=== PATIENT | female | born 1950 | race Caucasian/White ===

== ENCOUNTER 2018-06-29 13:14 | Inpatient (IN) | payer OTHER ==
[~2018-06-29] VITALS: Ht 157.5 cm; Wt 117.2 kg
[~2018-06-29 13:14] MED LIST: AMB5 PO; AMBIEN10 MG PO; COL100UDC PO; COLACE100 MG PO; COZAAR100 MG PO; DICLOFENAC SOD100 M2 PO; LORAZEPAM PO; LORAZEPAM2 MG PO; LOSARTAN POTAS100 M1 PO; METFORMIN ER500 M1 PO; METFORMIN HCL850 MG PO; NORCO1 TA2 PO; OMEPRAZOLE20 M2 PO; PRI20 PO; PRILOSEC20 MG PO; TOR10 PO; TORADOL10 MG PO; ZOLPIDEM TARTRA10 MG PO
--- NOTE | 2018-06-29 13:37 | NUR ---
PT PRESENTS TO THE ED TODAY WITH C/C OF CELLULITIS. PT REPORTS THAT HER BUTTOCK WOUND STARTED OUT A "PIMPLE" AND HAS BEEN GROWING X10 DAYS. PT IS WEARING A DIAPER, ONLY TO CATCH DRAINAGE FROM WOUND. LARGE ERYTHEMATOUS AREA NOTED TO RIGHT BUTTOCK, PURULENT DRAINAGE NOTED, AREA IS BLANCHABLE AND SWOLLEN. ERYTHEMA EXTENDS OVER ENTIRE RIGHT BUTTOCK. PT IS AWAKE AND ALERT, RESP E/U, NAD NOTED. MSE COMPLETED BY DR GRIER.
--- NOTE | 2018-06-29 13:55 | NUR ---
CONTACT # FOR PIA Solomon [phone].
--- NOTE | 2018-06-29 14:22 | NUR ---
PT AMBULATORY WITH STEADY GAIT TO ED RESTROOM, NAD NOTED.
[2018-06-29 14:30] LABS: BASOPHIL % 0.4 % (0-2); PLATELET COUNT 276 x10^3mcL (130-400)
[2018-06-29 14:36] LABS: CALCIUM 8.9 mg/dL (8.5-10.1); CARBON DIOXIDE 28.5 mmol/L (21-32); CHLORIDE SERUM 100 mmol/L (98-107); CREATININE SERUM 0.8 mg/dL (0.6-1.0); GFR1 > 60 mL/min; GLUCOSE SERUM 110 mg/dL (74-106); POTASSIUM SERUM 4.2 mmol/L (3.5-5.1); SODIUM SERUM 138 mmol/L (136-145)
[2018-06-29 14:41] LABS: ALKALINE PHOSPHATASE 105 U/L (46-116); ALT/SGPT 20 U/L (14-59); AST/SGOT 15 U/L (15-37); BILIRUBIN TOTAL 1.3 mg/dL (0.20-1.00); TOTAL PROTEIN, SERUM 7.7 g/dL (6.4-8.2)
[2018-06-29 14:43] LABS: ALBUMIN 3.3 g/dL (3.4-5.0)
--- NOTE | 2018-06-29 14:43 | NUR ---
PT MEDICATED PER ORDER PT VERBALIZED UNDERSTANDING OF ALL MEDICATIONS PRIOR TO ADMINISTRATION. PT IS AWAKE AND ALERT, RESP E/U, PT GIVEN CALL LIGHT. NAD NOTED.
[2018-06-29] MEDS ORDERED: PROTONIX20 MG PO (14:47)
[2018-06-29] MEDS ORDERED: AMBIEN5 MG PO (14:47)
[2018-06-29] MEDS ORDERED: LIPI20 PO (14:48)
[2018-06-29] MEDS ORDERED: LORAZEPAM2 MG PO (14:48)
[2018-06-29] MEDS ORDERED: MELOXICAM15 M1 PO (14:48)
[2018-06-29 14:50] LABS: microscopic required? YES; urine erythrocyte NEGATIVE (NEGATIVE)
--- NOTE | 2018-06-29 15:46 | NUR ---
PT RETURNED FROM CT AND XRAY VIA SHAILESH, BRIGITTE NOTED. PT IS AWAKE AND ALERT, RESP E/U, REPORTS PAIN IMPROVED TO 7/[address] GRIER MADE AWARE.
--- NOTE | 2018-06-29 16:49 | NUR ---
ATTEMPTED TO CALL REPORT TO GME WARREN. REPORTS THAT SHE WILL CALL BACK IN A FEW MINUTES.
--- NOTE | 2018-06-29 16:58 | NUR ---
REPORT CALLED TO GEM WARREN ON [facility] TO ASSUME CARE FOR PT.
--- NOTE | 2018-06-29 17:18 | NUR ---
PT DISCHARGED TO [facility] AT THIS TIME. PT WHEELED VIA GURNEY BY EMT PANCHO. ALL PT BELONGING SENT WITH PT, INCLUDING PT'S PERSONAL CANE. PT IS AWAKE AND ALERT, RESP E/U, NAD NOTED UPON LEAVING ED. CORY SENT UPSTAIRS WITH PT, RN KELVIN AWARE OF NEED TO CONTINUE INFUSION.
--- NOTE | 2018-06-29 17:20 | NUR ---
RECEIVED PT FROM ED VIA KONG, CAME IN DUE TO WOUND ON THE RIGHT BUTTOCK. AAOX4. C/O MILD DIZZINESS. ABLE TO FOLLOW COMMANDS. NO SOB NOTED, LUNG SOUNDS CTA. DENIES CHEST PAIN/PRESSURE. DENIES ABDOMINAL DISCOMFORT. ABLE TO MOVE ALL EXTREMITIES. CANE AT BEDSIDE. C/O 7/10 RIGHT BUTTOCK PAIN, NOTED VERY MINIMAL AMOUNT OF SEROSANGUINEOUS DRAINAGE. MEASUREMENT OF ERYTHEMA: [id number], NOTED CLUSTER OF YELLOW CLOSED WOUND, NO FOUL ODOR NOTED. CLEANSED W/ NS, PAT AND DRY, COVERED W/ ISLAND DRESSING. ERYTHEMA MARKED W/ SKIN MARKER. SIDE RAILS UPX2. CALL LIGHT ON REACH. RECEIVED PT FROM ED W/ CORY HOWARD. PRIMARY NURSE KELVIN AT BEDSIDE FOR CONTINUITY OF CARE
[2018-06-29 17:41] VITALS: BP 119/50
[2018-06-29 17:45] VITALS: Ht 157.5 cm; Wt 117.2 kg
--- NOTE | 2018-06-29 18:24 | NUR ---
PT LAYING IN BED. AA/OX4. REPORTED PAIN TO RIGHT BUTTOCK, CONTINUOUS, WORSE WITH REPOSITIONING/PALPATION, GIVEN PAIN MED, SEE MAR. PT REPORTS PAIN DECREASING. DRESSING TO RIGHT BUTTOCK CDI. NO SOB ON ROOM AIR. NO CHEST PAIN. PT CALM/COOPERATIVE. AMBULATORY TO RESTROOM, GAIT STEADY. DENIES PAIN WITH URINATION. BED IN LOW POSITION. CALL LIGHT WITHIN REACH. WILL ENDORSE TO ONCOMING SHIFT.
--- NOTE | 2018-06-29 19:27 | NUR ---
RECEIVED PT FROM PREVIOUS SHIFT NURSE. PT AOX4. DENIES SALVADOR/DIZZINESS. MED SURG PT. DENIES CP/PRESSURE. PULSES PALPABLE, NO EDEMA NOTED. LUNG SOUNDS CLEAR, ON RA. DENIES SOB/DIFFICULTY BREATHING. BOWEL SOUNDS ACTIVE. VOIDS FREELY. AMB. WITH CANE. R. BUTTOCKS ERYTHEMA/EDEMA NOTED DSG IN PLACE. IV TO RFA, INTACT AND PATENT. BED IN LOWEST POSITION. CALL LIGHT WITHIN REACH. WILL CONTINUE TO MONITOR.
[2018-06-29 21:05] VITALS: BP 129/54
--- NOTE | 2018-06-29 23:58 | NUR ---
PT RESTING IN BED. RR EVEN AND UNLABORED. NO ACUTE DISTRESS NOTED. CALL LIGHT WITHIN REACH. BED IN LOWEST POSITION. WILL CONTINUE TO MONITOR.
--- NOTE | 2018-06-30 01:09 | NUR ---
PT C/O R. BUTTOCK PAIN. MEDICATED PER EMAR. WILL CONTINUE TO MONITOR.
[2018-06-30 05:33] VITALS: BP 119/59
--- NOTE | 2018-06-30 07:36 | NUR ---
PT ENDORSE TO ME THIS MORNING, LAYING IN BED RESTING. AA/O X4. SAMMARINESE SPK. BREATHING EVEN AND UNLABORED ON RA. MEDSURG. DENIES ANY CP OR PRESSURE. BOWEL SOUNDS ACTIVE IN ALL FOUR QUADS. LAST BM 06/29 REG. VOIDS FREELY. AMB. RIGHT BUTTOCKS ERYTHEMA/EDMA NOTED TO WOUND/ DRSG INTACT/ NO NEW DRAINAGE NOTED. MEDICATED PER EMAR FOR RIGHT BUTTOCKS PAIN. IV TO THE RFA INTACT AND PATENT, INFUSING AT 80ML/HR, NO REDNESS OR SWELLING NOTED. CALL LIGHT IN REACH. BED IN LOW POSITION/ WILL CONTINUE TO MONITOR.
--- NOTE | 2018-06-30 08:22 | NUR ---
PT C/O OF R BUTTOCKS PAIN /10, MEDICATED PER EMAR.
[2018-06-30 08:37] VITALS: BP 135/62
--- NOTE | 2018-06-30 09:45 | NUR ---
DR. GARNETT AT BEDSIDE. NO SURGERY TO R BUTTOCKS FOR TODAY, WILL TX WITH ANTIBIOTICS AND DRSG CHANGES PRN/ SITZ BATH TID. WILL CONTINUE TO MONITOR.
--- NOTE | 2018-06-30 09:57 | NUR ---
PT C/O OF 9/10 R BUTTOCKS PAIN / MEDICATED PER EMAR.
--- NOTE | 2018-06-30 15:20 | NUR ---
DR. LUONG AT BEDSIDE.
--- NOTE | 2018-06-30 15:29 | NUR ---
LAB CALLED WITH GIL [facility]ICK 11.4. CALLED PHARMACY, WILL CALL ME BACK. WILL HOLD IV VANCO UNTILL PHARMACY CALLS.
--- NOTE | 2018-06-30 15:35 | NUR ---
MILAGROS MONSON FROM PHARMACY, [place] TO HANG VANCO IV AT CURRENT DOSE.
[2018-06-30 17:01] VITALS: BP 111/50
--- NOTE | 2018-06-30 17:34 | NUR ---
CHANGED PT DRSG TO RIGHT BUTTOCKS. DRAINING CLEAR FLUID, ZERO SMELL NOTED. REFUSE TO TRY ZITZ BATH AT THIS TIME. MEDICATED PER EMAR FOR DISCOMFORT 11/03. WILL CONTINUE TO MONITOR PAIN.
--- NOTE | 2018-06-30 18:39 | NUR ---
NO ACUTE CHANGES AT THIS TIME. NO ACUTE RESP DISTRESS OR SOB NOTED. ASKED IF WANTED TO TRY SITZ BATH, REFUSE AT THIS TIME. STATED WILL TRY LATER TONIGHT ONCE PAIN IS MUCH BETTER/ MEDICATED PER EMAR. IV TO THE RFA INTACT AND PATENT. WILL ENDORSE TO INCOMING RN.
--- NOTE | 2018-06-30 19:22 | NUR ---
RECEIVED PT FROM PREVIOUS SHIFT NURSE. PT AOX4. DENIES SALVADOR/DIZZINESS. MED SURG PT. DENIES CP/PRESSURE. PULSES PALPABLE, NO EDEMA NOTED. LUNG SOUNDS CLEAR, ON RA. DENIES SOB/DIFFICULTY BREATHING. BOWEL SOUNDS ACTIVE. VOIDS FREELY. AMBULATORY. R. BUTTOCKS ERYTHEMA/EDEMA DSG IN PLACE, CDI. IV TO RFA, INTACT AND PATENT. BED IN LOWEST POSITION. CALL LIGHT WITHIN REACH. WILL CONTINUE TO MONITOR.
[2018-06-30 21:06] VITALS: BP 122/63
--- NOTE | 2018-06-30 22:26 | NUR ---
PT C/O PAIN TO R. BUTTOCK. MEDICATED PER EMAR.
--- NOTE | 2018-07-01 00:04 | NUR ---
PT C/O CONTINUING PAIN TO R. BUTTOCK. MEDICATED PER EMAR.
--- NOTE | 2018-07-01 04:58 | NUR ---
PT C/O 11/03 PAIN, REQUESTING NORCO. MEDICATED PER EMAR. WILL CONTINUE TO MONITOR.
[2018-07-01 05:21] VITALS: BP 113/60
[2018-07-01 06:20] LABS: BASOPHIL % 0.5 % (0-2); PLATELET COUNT 257 x10^3mcL (130-400); RED CELL DISTRIBUTION WIDTH 13.9 % (11.5-14.5)
[2018-07-01 07:02] LABS: CALCIUM 8.6 mg/dL (8.5-10.1); CARBON DIOXIDE 29.2 mmol/L (21-32); CHLORIDE SERUM 102 mmol/L (98-107); CREATININE SERUM 0.8 mg/dL (0.6-1.0); GFR1 > 60 mL/min; GLUCOSE SERUM 115 mg/dL (74-106); POTASSIUM SERUM 4.1 mmol/L (3.5-5.1); SODIUM SERUM 138 mmol/L (136-145)
--- NOTE | 2018-07-01 07:15 | NUR ---
RECEIVED PT FROM NOC RN. PT FOUND RESTING IN BED WITH BOTH EYES CLOSED. NO S/S OF ACUTE DISTRESS. NO SOB ON ROOM AIR. EASILY AROUSABLE TO VERBAL STIMULI. AA/OX4, SPEAKS FRENCH. FACE SYMMETRICAL. SPEECH CLEAR. NO COMPLAINT OF PAIN AT THIS TIME. PT CALM/COOPERATIVE. DRESSING CDI TO RIGHT BUTTOCK. SIDE RAILS UP X2. BED IN LOW POSITION. CALL LIGHT WITHIN REACH. INSTRUCTED TO USE CALL LIGHT TO CALL FOR ASSISTANCE PRN, VERBALIZED UNDERSTANDING. WILL CONT. TO MONITOR.
[2018-07-01 07:59] VITALS: BP 108/58
--- NOTE | 2018-07-01 09:12 | NUR ---
LATE ENTRY: IV INFILTRATED TO RFA, IV REMOVED, CATHETER IN TACT. PRESSURE APPLIED. NO REDNESS NOTED, MILD SWELLING. DENIES PAIN AT SITE. IV INSERTED TO LFA, 22 GAUGE. PATENT. FLUSHES WELL. PT COMPLAINT OF PAIN 10/10 TO RIGHT BUTTOCK, IV PAIN MED GIVEN, SEE MAR. NO S/S OF ACUTE DISTRESS. DRESSING SATURATED WITH PURULENT AND SEROSANGUINOUS DRAINAGE, LARGE AMOUNT. DRESSING CHANGED. PT AGREES TO HAVE SITZ BATH ONCE PAIN TOLERABLE. WILL CONT. TO MONITOR.
--- NOTE | 2018-07-01 11:34 | NUR ---
PT RECEIVING SITZ BATH TO RIGHT BUTTOCK WOUND. TOLERATING WELL. NO COMPLAINT OF PAIN. PT CALM/COOPERATIVE. WILL CONT. TO MONITOR.
--- NOTE | 2018-07-01 11:54 | NUR ---
SITZ BATH COMPLETED. TOLERATED WELL. SEROSANGUINOUS DRAINAGE NOTED, PT AMBULATORY BACK TO BED. WOUND DRIED, DRESSING APPLIED TO WOUND. LINEN CDI. PT LAYING ON LEFT SIDE. AA/OX4. DENIES PAIN AT THIS TIME. NO SOB ON ROOM AIR. CALM/COOPERATIVE. BED IN LOW POSITION. CALL LIGHT WITHIN REACH. WILL CONT. TO MONITOR.
[2018-07-01 12:18] VITALS: BP 143/67
--- NOTE | 2018-07-01 15:35 | NUR ---
PT COMPLAINT OF PAIN TO IV IN LFA, IV REMOVED, CATHETER IN TACT. PRESSURE APPLIED. IV INSERTED TO RFA, 22 GAUGE. PATENT WITH BLOOD RETURN. FLUSHES WELL. IV FLUIDS FLOWING. PT COMPLAINT OF PAIN TO RIGHT BUTTOCK, RATES 8/10, WORSE WITH POSITIONING/PALPATION. GIVEN PAIN MED. SEE MAR. NO S/S OF ACUTE DISTRESS. NO SOB ON ROOM AIR. PT CALM/COOPERATIVE. AA/OX4. BED IN LOW POSITION. CALL LIGHT WITHIN REACH. VISITORS AT BEDSIDE. WILL CONT. TO MONITOR.
--- NOTE | 2018-07-01 15:52 | NUR ---
PT COMPLAINT OF DIARRHEA, REPORTS BM X4, LIQUID, YELLOW. DENIES ABD. PAIN. DR. VAZQUEZ AWARE. RECEIVED TELEPHONE ORDER TO DISCONTINUE ROCEPHIN AND LACTINEX 1 TAB PO WITH MEALS, ORDERS REPEATED BACK TO PHYSICIAN, VERIFIED. ENTERED. WILL CARRY OUT.
[2018-07-01 16:47] VITALS: BP 115/60
--- NOTE | 2018-07-01 17:41 | NUR ---
PT RECEIVING SITZ BATH PER PHYSICIAN ORDER. DRESSING TO RIGHT BUTTOCK REMOVED, LARGE AMOUNT PURULENT/SEROSANGUINUOUS DRAINAGE NOTED. NO FOUL ODOR NOTED. CALL LIGHT WITHIN REACH. AA/OX4. WILL CONT. TO MONITOR.
--- NOTE | 2018-07-01 18:00 | NUR ---
SITZ BATH COMPLETED. TOLERATED WELL. SEROSANGUINUOUS DRAINAGE NOTED. WOUND DRIED, DRY DRESSING APPLIED PER PHYSICIAN ORDER. CDI. PT AMBULATORY WITH FULL ROM, GAIT STEADY. TOLERATED ACTIVITY WELL. NO COMPLAINT OF PAIN. NO S/S OF ACUTE DISTRESS. PT SITTING UP IN BED EATING DINNER. IV WNL TO RFA, IV FLUIDS FLOWING. PT CALM/COOPERATIVE. BED IN LOW POSITION. CALL LIGHT WITHIN REACH. WILL CONT. TO MONITOR.
--- NOTE | 2018-07-01 19:20 | NUR ---
RECEIVED PT FROM PREVIOUS SHIFT NURSE. PT IN NO ACUTE DISTRESS. RR EVEN AND UNLABORED. DENIES SOB/DIFFICULTY BREATHING. IV TO RFA, INTACT AND PATENT. R. BUTTOCK WOUND DSG IN PLACE, CDI. BED IN LOWEST POSITION. CALL LIGHT WITHIN REACH. WILL CONTINUE TO MONITOR.
[2018-07-01 20:51] VITALS: BP 141/60
--- NOTE | 2018-07-01 22:15 | NUR ---
PT C/O R. BUTTOCK PAIN. MEDICATED PER EMAR. WILL CONTINUE TO MONITOR.
--- NOTE | 2018-07-02 03:13 | NUR ---
PT RESTING IN BED. RR EVEN AND UNLABORED. NO ACUTE DISTRESS NOTED. CALL LIGHT WITHIN REACH. BED IN LOWEST POSITION. WILL CONTINUE TO MONITOR.
[2018-07-02 05:43] VITALS: BP 117/56
--- NOTE | 2018-07-02 06:17 | NUR ---
PT MEDICATED PER EMAR FOR 10/10 R. BUTTOCK PAIN.
--- NOTE | 2018-07-02 06:30 | NUR ---
WOUND CARE PROVIDED.
--- NOTE | 2018-07-02 07:15 | NUR ---
ASSUMED CARE OF PATIENT. ALERT AND ORIENTED X4. S1, S2 SOUNDS HEARD, REGULAR RATE AND RHYTHM. PEDAL PULSES PALPABLE BILATERALLY. NO EDEMA ON LOWER EXTREMITIES. NO ADVERSE EFFECTS NOTED FROM LOVENOX THERAPY. LUNG SOUNDS CLEAR BILATERALLY, NO ADVENTITIOUS BREATH SOUNDS, ON ROOM AIR. BOWEL SOUNDS PRESENT X4. VOIDING WITH NO ISSUE. AMBULATES INDEPENDENTLY. WOUND ON RIGHT BUTTOCK NOTED, DRESSING IN PLACE THIS AM. IV ON RFA INFUSING 50ML/HR NS WITH NO ISSUE. BED LOCKED AND IN LOWEST POSITION, NONSKID SOCKS IN PLACE, CALL LIGHT WITHIN REACH.
--- NOTE | 2018-07-02 08:28 | NUR ---
COMPLAINING OF 8/10 PAIN. PROVIDED PRN KAY.
[2018-07-02 09:41] VITALS: BP 117/58
--- NOTE | 2018-07-02 10:20 | NUR ---
PATIENT PLACED ON SITZ BATH. DRESSING CHANGE PROVIDED AFTERWARDS.
--- NOTE | 2018-07-02 10:30 | NUR ---
PRN DILAUDID FOR 9/10 RIGHT RIGHT BUTTOCK PAIN.
--- NOTE | 2018-07-02 10:45 | NUR ---
ABSCESS SPECIMEN COLLECTED AND SENT TO LAB.
--- NOTE | 2018-07-02 11:10 | NUR ---
PT RESTING AT THIS TIME. DENIES ANY DISCOMFROT. CALL LIGTH IN REACH.
--- NOTE | 2018-07-02 11:54 | NUR ---
PATIENT RETURNED FROM GI LAB. NO APPARENT DISTRESS NOTED. PLACED BACK ON FLUIDS AND REMAINING ON 2L O2 VIA NC.
--- NOTE | 2018-07-02 12:33 | NUR ---
PATIENT REPORTING 7/10 RIGHT BUTTOCK PAIN. PRN NORCO PROVIDED.
--- NOTE | 2018-07-02 14:37 | NUR ---
PATIENT COMPLAINING OF 7/10 PAIN. PRN DILAUDID PROVIDED. DOES NOT APPEAR TO BE IN ANY DISTRESS.
--- NOTE | 2018-07-02 15:10 | NUR ---
DR. VAZQUEZ PAGED AND CALLED BACK. MADE AWARE THAT CURRENT PAIN MEDICATION REGIMENT NOT EFFECTIVE. PATIENT IN FREQUENT PAIN. REVIEWED MEDICATIONS WITH MD. INCREASED DILAUDID TO 2MG Q4H IVP.
--- NOTE | 2018-07-02 17:11 | NUR ---
SITZ BATH PROVIDED. DRESSING CHANGE ALSO DONE AFTER BATH. WOUND DRAINS SEROSANGUINOUS FLUID AND PAINFUL. DOES NOT APPEAR TO BE IN ANY DISTRESS.
[2018-07-02 17:43] VITALS: BP 133/60
--- NOTE | 2018-07-02 18:13 | NUR ---
PATIENT SEEN EATING DINNER IN BED. COMPLAINING OF 6/10 RIGHT BUTTOCK PAIN. PROVIDED PRN NORCO. NO DISTRESS NOTED.
--- NOTE | 2018-07-02 18:51 | NUR ---
PATIENT SEEN SITTING IN ROOM WITH NO APPARENT DISTRESS. NO COMPLAINTS OF PAIN AT THIS MOMENT. DRESSING REMAINS DRY AND INTACT ON BUTTOCKS. NONSKID SOCKS IN PLACE. BED LOCKED AND IN LOWEST POSITION. CALL LIGHT WITHIN REACH. WILL REPORT TO ONCOMING RN.
--- NOTE | 2018-07-02 19:15 | NUR ---
RECIEVED REPORT FROM DAY SHIFT RN. NURSING UPDATES. RESUMES CARE OF PT. A&OX4. CARDIAC WNL (MED SURG). CIRCULATION WNL (LOVENOX). RESP WNL. GASTRO REPORTED LOOSE STOOL 07/01. GENIT WNL. MUSCULO WNL. SKIN R BUTTOCKS ABCESS.
[2018-07-02 20:14] VITALS: BP 135/64
--- NOTE | 2018-07-02 22:25 | NUR ---
PT REPORTED PAIN 01/03 AND PREVIOUS ADMIN OF NORCO WORKING AND TAKING EDGE OFF. ADMIN PRN NORCO (*SEE MAR*). PT TOLERATED WELL. WILL REACCESS.
--- NOTE | 2018-07-03 00:34 | NUR ---
PT RESTING CALMLY IN BED. NO ACUTE DISTRESS. BED IN LOWEST POSITION CALL LUCAS WITHIN REACH.
--- NOTE | 2018-07-03 01:54 | NUR ---
PT C/O PAIN VERY VERY BAD. ADMIN PRN DILAUDID (*SEE MAR)* FOR PAIN 01/03. PT TOLERATED WELL AFTER ADMIN STATED IT HELPING A LOT AND PAIN IS SLOWING DOWN.
--- NOTE | 2018-07-03 03:41 | NUR ---
PT RESTING CALMLY IN BED. NO ACUTE DISTRESS. BED IN LOWEST POSITION CALL LUCAS WITHIN REACH.
--- NOTE | 2018-07-03 04:09 | NUR ---
WOUND DRESSING CHANGED PER BEING SOILED. NEW DRESSING APPLIED. PT TOLERATED WELL.
[2018-07-03 05:55] VITALS: BP 123/57
--- NOTE | 2018-07-03 06:08 | NUR ---
PT RESTING CALMLY IN BED. NO ACUTE CHANGES. WILL ENDORSE. A&OX4. CARDIAC WNL (MED SURG). CIRCULATION WNL (LOVENOX). RESP WNL. GASTRO REPORTED LOOSE STOOL 07/01. GENIT WNL. MUSCULO WNL. SKIN R BUTTOCKS ABCESS.
[2018-07-03 07:09] LABS: BASOPHIL % 0.5 % (0-2); PLATELET COUNT 246 x10^3mcL (130-400)
[2018-07-03 07:10] LABS: CALCIUM 8.5 mg/dL (8.5-10.1); CARBON DIOXIDE 29.7 mmol/L (21-32); CHLORIDE SERUM 104 mmol/L (98-107); CREATININE SERUM 0.9 mg/dL (0.6-1.0); GFR1 > 60 mL/min; GLUCOSE SERUM 105 mg/dL (74-106); POTASSIUM SERUM 3.9 mmol/L (3.5-5.1); SODIUM SERUM 139 mmol/L (136-145)
--- NOTE | 2018-07-03 07:40 | NUR ---
RECEIVED PT IN BED A/A/OX4 DENIES SALAVDOR. RESP EVEN AND UNLABORED WITH CLEAR BS BILAT. DENIES ANY SOB/CP/PRESSURE. NO EDEMA NOTED. ABD SOFT, OBESE, NONTENDER WITH ACTIVE BS X4. DENIES ANY N/V AT THIS TIME. VOIDING FREELY. AMBULATORY. WITH DX CELLULITIS TO RT BUTTOCK WITH OPEN WOUND DRAINING SEROUSANGUINOUS DRAINAGE. NOTED DECREASE IN ERYTHEMA TO TISSUE SORROUNDING WOUND, BUT NOTED SLUGH TISSUE PRESENT AT CENTER OF WOUND. PT WITH SITZ BATH WITH DRSG CHANGE TID. CALL LIGHT IN REACH NEEDS ATTENDED TO.
[2018-07-03 08:40] VITALS: BP 117/54
--- NOTE | 2018-07-03 10:30 | NUR ---
DR. VAZQUEZ EVALUATED WOUND AND STATED HE WILL WOULD CONTACT SX ONCE MORE TO REVAL PT FOR POSSIBLE SX INTERVENTION. PT THEN ASSISTED TO SITZ BATH FOLLOWED BY WOUND CARE. TOLERATED WELL.
--- NOTE | 2018-07-03 12:21 | NUR ---
PT C/O MILD PAIN MEDICATED WITH NORCO PO OREDER FOR PAIN 08/03. CALL LIGHT IN REACH NEEDS ATTENDED TO.
--- NOTE | 2018-07-03 15:56 | NUR ---
Initial Nutrition Assessment Patient Name: Radha Maldonado : 46 Dx: Cellulitis Right Buttocks PMHx: Gerd, Partial removal of liver, HTN, DM PSHx: Knee replacements Labs: Na 139, K 3.9, Glucos. 105, Hgb 11.0L, Hct 32L Meds: Ambien, Colace, Cozaar, Glucophage, Lactinex, Lipitor, Sodium Chloride 0.9%, Zofran Diet: CCHO PO Intake: 06/30-Lunch 85%, Dinner 100%, 07/01- Breakfast 50%, Dinner 100%, 07/02-Breakfast 30%, 07/03- (Cardiac diet) Breakfast 40% Ht: 157.48cm, 62in Wt: 117.169kg, 257# BMI: 47.2kg/m2 Obese Bed Scale: 291# IBW: 115# %IBW: 223% UBW: 258# Age: 68 Food Allergies: NKA to foods Skin: Right buttocks abscess wound Clay: 20 Edema: None GI: Last BM 07/02- Pt Visit: Pt was very verbal about how she was feeling and about what she eats at home. She says recently she has only wanted to eat fruit, but will usually cook noodle and veggie soups. Pt stated her previous doctor told her to cut back on red meat. Pt only eats chicken and fish and occasionally pork. Pt states she does eat a lot of rice, but will not eat bread, tortillas or sweets because they give her headaches and make her feel sick. Pt states does not take insulin. Pt states she was diagnosed with depression so for the past 6 months she just sits and home and isn't active. She feels her weight has gone up and down the past few weeks, but states her clothes fit her the same. She states that her son and her try to cook mostly at home. Education on was given for both diabetes and hypertension diets. Pt was very receptive to the information and stated she will use it at home with her son. Per H&P: Nothing documented at this time. Problem with: N: Yes V: None D: None C: None Problems with: Chewing: None Swallowing: None Current appetite: Only wants to eat fruit, does not have appetite for anything else Recent wt change: Pt states she has gained wait in the past few months due to sedentary lifestyle, unsure of weight gain amount. %wt change: None Vitamin/Supplement use: Vitamin D 1x/wk Special diet at home: None Physical activity: None in the past 6 months Education: Provided NCM on Hypertension Nutrition Therapy and Type 2 Diabetes Nutrition Therapy in Slovenian. Discussion of proper portion sizes of carbohydrates by referring to the NCM on Type 2 Diabetes. Discussed eating small portions and more meals frequently. Discussed eating more balanced meals as well. Low sodium foods was also discussed with patient while using the list located on the [facility] Hypertension packet. Estimated Nutritional Needs Based on adjusted body weight 68kg Energy: 1700-2040kcal/d (25-30kcal/kg) (Based on age and BMI, IBW is >125%) Protein: 81-88g/d (1.2-1.3g/kg) (Based on age and BMI) Fluid: 2040-2380ml/d (30-35 ml/kcal) (Based on wound on right buttock) Nutrition Diagnosis 1. Food and nutrition related knowledge deficit r/t lack of prior exposure to accurate nutrition-related information aeb discussion with patient and history of high glucose levels. Intervention 1. Continue with CCHO diet (NCM on Hypertension education given) 2. Add Low Sodium Diet (NCM on Diabetes education given) Called Dr. Parker to confirm 3. 1000mg of Vitamin C for wound healing, 1 tab qd, called Dr. Parker to confirm Monitor/Evaluate Goal: PO intake at least 75% of estimated needs Monitor: PO intake, Labs, GI function, tolerance of CCHO and Low Sodium diet, wound healing MR F/U 07/06-07/08
--- NOTE | 2018-07-03 15:57 | NUR ---
Intervention 1. Continue with [facility] diet (NC on Hypertension education given) 2. Add Low Sodium Diet (NC on Diabetes education given) Called Dr. Parker to confirm 3. 1000mg of Vitamin C for wound healing, 1 tab qd, called Dr. Parker to confirm
--- NOTE | 2018-07-03 16:00 | NUR ---
IV TO RFA LEAKING, NEW IV INSERTED AFTER 3 ATTEMPTS 22G TO RFA.
--- NOTE | 2018-07-03 16:45 | NUR ---
PT C/O PAIN 09/03 TO RT BUTTOCK. MEDICATED WITH NORCO ORDERED. WILL CONT TO MONITOR.
[2018-07-03 17:38] VITALS: BP 152/70
--- NOTE | 2018-07-03 17:50 | NUR ---
PT GIVEN SECOND SITZ BATH HAD INCREASE PAIN AFTER WOUND CARE WAS PROVIDED. PT GIVNE DILAUDID 2MG IVP ORDERED. CONT TO MONITOR. CALL LIGTH IN REACH NEEDS ATTENDED TO.
--- NOTE | 2018-07-03 18:15 | NUR ---
DR. VALENZUELA IN TO EVAL PT'S WOUND. MD DISCUSSED NEED TO CLEAN WOUND AND DRAIN IT. MD DISCUSSED RISK AND BENEFITS OF PROCEDURE WITH PT AND PT WAS AGREABLE TO HAVE PROCEDURE TOMORROW PENDING AVAILABLE OR TIME.
--- NOTE | 2018-07-03 19:50 | NUR ---
RECEIVED PATIENT IN BED AWAKE, ALERT AND ORIENTED WITH NO SIGN OF ACUTE DISTRESS. BREATHING EASY AND NONLABOR WITH CLEAR BS SATTING AT 98% RA. NO C/O PAIN TO BUTTOCK WOUND ABSCESS AT THIS TIME. IV TO RFA INTACT AND INFUSINGW ELL. WILL CONTINUE TO MONITOR. CALL LIGHT WITHIN REACH.
[2018-07-03 21:19] VITALS: BP 121/58
--- NOTE | 2018-07-03 23:58 | NUR ---
PATIENT STILL AWAKE CONSENT FOR DEBRIDEMENT OF RT BUTTOCK ABCESS SIGNED BY PATIENT.
--- NOTE | 2018-07-04 02:30 | NUR ---
AWAKE C/O PAIN TO RT BUTTOCK, DILAUDID 2MG IVP GIVEN PRESCRIBED. WILL CONTINUE TO MONITOR.
--- NOTE | 2018-07-04 05:20 | NUR ---
C/O PAIN TO RIGHT BUTTOCK MEDICATED PRESCRIBED. ALL NEEDS ATTENDED. KEPT NPO FOR RT BUTTOCK ABCESS DEBRIDEMENT. CONSENT SIGNED.
[2018-07-04 05:28] VITALS: BP 139/65
[2018-07-04 06:22] LABS: BASOPHIL % 0.4 % (0-2); PLATELET COUNT 303 x10^3mcL (130-400); RED CELL DISTRIBUTION WIDTH 13.9 % (11.5-14.5)
[2018-07-04 06:43] LABS: CALCIUM 8.7 mg/dL (8.5-10.1); CARBON DIOXIDE 28.9 mmol/L (21-32); CHLORIDE SERUM 101 mmol/L (98-107); CREATININE SERUM 0.9 mg/dL (0.6-1.0); GFR1 > 60 mL/min; GLUCOSE SERUM 113 mg/dL (74-106); POTASSIUM SERUM 4.3 mmol/L (3.5-5.1); SODIUM SERUM 137 mmol/L (136-145)
--- NOTE | 2018-07-04 07:30 | NUR ---
PT ENDORSE TO ME THIS MORNING. LAYING IN BED RESTING. AA/O X4 BREATHING EVEN AND UNLABORED ON RA. NO ACUTE RESP DISTRESS OR SOB NOTED.REMAINS NPO SINCE MIDNIGHT. MEDSURG/ DENIES ANY CP OR PRESSURE. VOIDS /AMB. IV TO THE RFA INTACT AND PATENT. NO REDNESS OR SWELLING NOTED. CALL LIGHT IN REACH. BED IN LOW POSITION. WILL CONTINUE PLAN OF CARE.
[2018-07-04 09:03] VITALS: BP 135/62
--- NOTE | 2018-07-04 12:05 | NUR ---
PT IS BEING TAKEN TO OR. BREATHING EVEN AND UNLABORED ON RA. NO ACUTE RESP DISTRESS OR SOB NOTED. WILL CONTINUE TO MONITOR WHEN PT RETURNS.
--- NOTE | 2018-07-04 14:10 | NUR ---
PT BACK FROM OR. AA/O X4 BREATHING EVEN AND UNLABORED ON RA. RIGHT BUTTOCKS WRAPED WITH 4X4/ ABD PAD AND TAPE. NO NEW DRAINAGE NOTED. C/O RIGHT BUTTOCKS PAIN /, MEDICATED PER EMAR. RECONNECTED IV TO RFA, INFUSING AT 50ML/HR. VS: 62 HR, 02 94%, 15 RESP, 141/76, 97.5 TEMP. WAS ABLE TO ABM TO BATHROOM TO VOID. WILL CONTINUE TO MONITOR.
[2018-07-04 16:47] VITALS: BP 137/74
--- NOTE | 2018-07-04 18:25 | NUR ---
PT TOLERATED 100% OF HER DINNER. DENIES ANY N/V AT THIS TIME. WILL CONTINUE TO MONITOR.
--- NOTE | 2018-07-04 18:35 | NUR ---
NO ACUTE CHANGES AT THIS TIME. NO ACUTRE RESP DISTRESS OR SOB NOTED. LAYING IN BED RESTING/ DENIES ANY RIGH BUTTOCK PAIN, MEDICATED PER ENMAR. IV TO THE RFA INTACT AND PATENT INFUSING AT 50ML/HR, NO REDNESS OR SWELL NOTED. WILL ENDORSE TO INCOMING RN.
--- NOTE | 2018-07-04 19:31 | NUR ---
AWAKE AND ALERT, ORIENTED TO NAME, PLACE, TIME AND SITUATION. SPEECH CLEAR AND APPROPRIATE. HOB ELEVATED 30 DEG. BREATHING EVEN AND UNLABORED ON ROOM AIR. IVF OF NS AT 50ML/HR. DRESSING OVER RIGHT BUTTOCK. PER ENDORSEMENT, WET TO DRY DRESSING 4X4 COVERED WITH ABD PAD, CHANGE IF SOILED.
--- NOTE | 2018-07-04 20:19 | NUR ---
DRESSSING TO RIGHT BUTTOCK IS SOILED. REMOVED. NOTED DEBRIDED WOUND TO RIGHT BUTTOCK, RED BASE WITH DARKISH DISCOLORATION TO THE SIDE. APPLIED WET 4X4 DRESSING INSIDE, COVERED WITH ABD PAD, SECURED WITH PAPER TAPE. TOLERATED WELL.
[2018-07-04 20:33] VITALS: BP 132/60
--- NOTE | 2018-07-04 23:38 | NUR ---
STATED HAVING PAIN TO RIGHT BUTTOCK, DILAUDID 2MG ADMINISTERED SLOW IVP FOR PAIN. PT AWAKE AND ALERT, BREATHING EVEN AND UNLABORED ON ROOM AIR. ON AIR MATTRESS. CALL LIGHT WITHIN EASY REACH.
[2018-07-05 05:27] VITALS: BP 107/45
--- NOTE | 2018-07-05 06:44 | NUR ---
AWAKE AND ALERT, STATED SHE IS COMFORTABLE AT THIS TIME. ASKED FOR EXTRA BLANKET, PROVIDED. BREATHING EVEN AND UNLABORED. IV SITE FREE FROM ERYTHEMA OR SWELLING. ON AIR MATTRESS.
--- NOTE | 2018-07-05 07:07 | NUR ---
AWAKE AND ALERT, IN NO ACUTE DISTRESS. ENDORSED TO NURSE KELVIN
--- NOTE | 2018-07-05 07:25 | NUR ---
RECEIVED PT FROM NOC GEM KENT. PT FOUND LAYING IN BED. AA/OX4. SPEAKS YEMENI. NO S/S OF ACUTE DISTRESS. NO SOB ON ROOM AIR. CALM/COOPERATIVE. COMPLAINT OF PAIN TO RIGHT BUTTOCK, WORSE WITH PALPATION. WILL GIVE PAIN MED, SEE MAR. DRESSING TO RIGHT BUTTOCK CDI. IV WNL TO RFA, IV FLUIDS FLOWING. NO REDNESS, NO SWELLING, NO INFILTRATION. PATENT AND FLUSHES WELL. IV FLUIDS FLOWING. NO CHEST PAIN. MED-SURG. BED IN LOW POSITION. CALL LIGHT WITHIN REACH. WILL CONT. TO MONITOR.
[2018-07-05 09:02] VITALS: BP 139/61
--- NOTE | 2018-07-05 09:06 | NUR ---
PT COMPLAINT OF CONTINUOUS PAIN TO RIGHT BUTTOCK, 8/10, WORSE WITH PALPATION, REPOSITIONED TO LEFT SIDE, GIVEN PAIN MED FOR BREAKTHROUGH PAIN, SEE MAY. COMPLAINT OF NAUSEA, GIVEN MEDICATION, SEE MAY. AA/OX4. NO S/S OF ACUTE DISTRESS. NO SOB ON ROOM AIR. NO CHEST PAIN. CALM/COOPERATIVE. DRESSING TO RIGHT BUTTOCK MODERATELY SATURATED WITH SEROSANGUIOUS DRAINAGE, DRESSING CHANGED PER PHYSICIAN ORDER: WET TO DRY DRESSING WITH ABD. PAD. TOLERATED ACTIVITY WELL. VS STABLE. IV WNL TO RFA, IV FLUIDS FLOWING. NO CHILLS. BED IN LOW POSITION. CALL LIGHT WITHIN REACH. WILL CONT. TO MONITOR.
--- NOTE | 2018-07-05 10:42 | NUR ---
PT LAYING IN BED. REPORTS PAIN DECREASING, RATES 6/10, REPORTS TOLERABLE AT THIS TIME. PT TALKING TO SON AT BEDSIDE. NO S/S OF ACUTE DISTRESS. CALM/COOPERATIVE. DRESSING TO RIGHT BUTTOCK CDI. IV WNL TO RFA, IV FLUIDS FLOWING. NO SOB ON ROOM AIR. CALM/COOPERATIVE. BED IN LOW POSITION. CALL LIGHT WITHIN REACH. WILL CONT. TO MONITOR.
--- NOTE | 2018-07-05 15:23 | NUR ---
COMPLAINT OF PAIN TO RIGHT BUTTOCK, WORSE WITH PALPATION/MOVEMENT, RATES 8/10, ACHING, CONTINUOUS. GIVEN PAIN MED, SEE MAR. AA/OX4. NO S/S OF ACUTE DISTRESS. NO SOB ON ROOM AIR. AA/OX4. CALM/COOPERATIVE. BED IN LOW POSITION. CALL LIGHT WITHIN REACH. DRESSING TO RIGHT BUTTOCK CDI. WILL CONT. TO MONITOR.
--- NOTE | 2018-07-05 17:28 | NUR ---
DRESSING TO RIGHT BUTTOCK MODERATELY SATURATED WITH SEROSANGUINOUS DRAINAGE. DRESSING CHANGED PER PHYSICIAN ORDER: WET 4X4 DRESSING APPLIED COVERED BY DRY GAUZE AND ISLAND DRESSING. CDI. PT COMPLAINT OF PAIN TO RIGHT BUTTOCK, RATES 8/10. WORSE WITH PALPATION/MOVEMENT. GIVEN IV PAIN MED, SEE MAR. VS STABLE, O2 SAT 96% ON ROOM AIR. RR EVEN/UNLABORED. IV WNL TO RFA, IV FLUIDS FLOWING. PATENT AND FLUSHES WELL. CALM/COOPERATIVE. NO CHILLS. NO N/V. NO CHEST PAIN. BED IN LOW POSITION. CALL LIGHT WITHIN REACH. WILL CONT. TO MONITOR.
[2018-07-05 17:38] VITALS: BP 141/62
--- NOTE | 2018-07-05 18:20 | NUR ---
PT LAYING IN BED. AA/OX4. NO S/S OF ACUTE DISTRESS. NO COMPLAINT OF PAIN AT THIS TIME. NO SOB ON ROOM AIR. VS STABLE. CALM/COOPERATIVE. AIR MATTRESS IN PLACE. DRESSING TO RIGHT BUTTOCK CDI. IV WNL, IV FLUIDS FLOWING. BED IN LOW POSITION. CALL LIGHT WITHIN REACH. WILL ENDORSE TO ONCOMING SHIFT.
--- NOTE | 2018-07-05 19:21 | NUR ---
AWAKE AND ALERT, ORIENTED TO NAME, PLACE, TIME AND SITUATION. SPEECH CLEAR AND APPROPRIATE. BREATHING EVEN AND UNLABORED ON ROOM AIR. ON AIR MATTRESS. IVF OF NS AT 50ML/HR. DRESSING TO RIGHT BUTTOCK INTACT.
[2018-07-05 20:29] VITALS: BP 169/82
--- NOTE | 2018-07-05 20:42 | NUR ---
PT ASKED FOR AMBIEN TO HELP HER SLEEP. PAGED DR. TREVINO ENDOSCOPY TECHNICAN FOR DR. NGUYEN
[2018-07-05 20:54] VITALS: BP 132/45
--- NOTE | 2018-07-05 21:23 | NUR ---
DR. TREVINO CALLED BACK, INFORMED PT ASKING FOR AMBIEN TO HELP HER SLEEP. DR. TREVINO ORDERED AMBIEN 10MG PO Q HS PRN FOR INSOMNIA.
--- NOTE | 2018-07-05 23:59 | NUR ---
EYES CLOSED, BREATHING EVEN AND UNLABORED ON ROOM AIR. IVF INFUSING WELL. CALL LIGHT WITHIN EASY REACH. BED IN LOWEST POSITION. UPPER SIDE RAILS KEPT RAISED.
--- NOTE | 2018-07-06 00:17 | NUR ---
DR. LUONG IN TO SEE PT. SHOWED DR. LUONG RESULT OF LATEST TISSUE CULTURE RESULT. DR. LUONG ORDERED TO CONTINUE FLAGYL AND ROCEPHIN FOR 10 MORE DAYS.
--- NOTE | 2018-07-06 02:36 | NUR ---
EYES CLOSED, BREATHING EVEN AND UNLABORED. CALL LIGHT WITHIN EASY REACH. PT REPOSITIONS SELF IN BED. ON AIR MATTRESS.
--- NOTE | 2018-07-06 04:43 | NUR ---
STATED HAVING SEVERE PAIN TO RIGHT BUTTOCKS. CHECKED SURGICAL SITE, DRESSING INTACT. DILAUDID 2MG ADMINISTERED SLOW IVP FOR PAIN. ALSO STATED HAVING NAUSEA. ZOFRAN 4MG ADMINISTERED SLOW IVP.
--- NOTE | 2018-07-06 05:07 | NUR ---
AWAKE AND ALERT, WATCHING TV. ASKED FOR COFFEE, PROVIDED.
[2018-07-06 05:27] VITALS: BP 126/64
[2018-07-06 06:14] LABS: CALCIUM 8.2 mg/dL (8.5-10.1); CARBON DIOXIDE 28.1 mmol/L (21-32); CHLORIDE SERUM 104 mmol/L (98-107); CREATININE SERUM 0.9 mg/dL (0.6-1.0); GFR1 > 60 mL/min; GLUCOSE SERUM 112 mg/dL (74-106); POTASSIUM SERUM 4.3 mmol/L (3.5-5.1); SODIUM SERUM 139 mmol/L (136-145)
[2018-07-06 06:41] LABS: BASOPHIL % 0.7 % (0-2); PLATELET COUNT 260 x10^3mcL (130-400); RED CELL DISTRIBUTION WIDTH 14.4 % (11.5-14.5)
--- NOTE | 2018-07-06 07:04 | NUR ---
EYES CLOSED, EASILY AWAKENED. BREATHING EVEN AND UNLABORED ON ROOM AIR. IVF INFUSING WELL. ENDORSED TO NURSE KELVIN
--- NOTE | 2018-07-06 07:30 | NUR ---
RECEIVED PT FROM SHORTY K[facility]. PT COMPLAINT OF PAIN 10/10 RIGHT BUTTOCK. CONTINUOUS. WORSE WITH PALPATION. GIVEN PAIN MED, SEE MAR. NO S/S OF ACUTE DISTRESS. DRESSING TO RIGHT BUTTOCK CDI. PT CALM/COOPERATIVE. NO SOB ON ROOM AIR. LUNG SOUNDS CTA BILATERALLY ON ROOM AIR. NO CHEST PAIN. AMBULATORY TO RESTROOM, GAIT STEADY. VOID X1. NO ABD. PAIN. NO N/V. AIR MATTRESS IN PLACE. IV WNL TO RFA, IV FLUIDS FLOWING. NO REDNESS, NO SWELLING, NO INFILTRATION. PATENT AND FLUSHES WELL. INSTRUCTED TO USE CALL LIGHT TO CALL FOR ASSISTANCE PRN. VERBALIZED UNDERSTANDING. BED IN LOW POSITION. CALL LIGHT WITHIN REACH. WILL CONT. TO MONITOR.
[2018-07-06 10:16] VITALS: BP 123/60
--- NOTE | 2018-07-06 10:44 | NUR ---
PT COMPLAINT OF PAIN TO RIGHT BUTTOCK, RATES 10/10, WORSE WITH PALPATION/MOVEMENT. ACHING. CONTINUOUS. GIVEN PAIN MED, SEE MAR. COMPLAINT OF MILD NAUSEA, VERIFIED WITH PHARMACIST OKAY TO GIVE WITH PAIN MED, VERIFIED BY PHARMACIST, GIVEN. NO S/S OF ACUTE DISTRESS. NO CHILLS. NO FEVER. NO SOB ON ROOM AIR. DRESSING TO RIGHT BUTTOCK CDI. AA/OX4. IV WNL TO RFA, IV FLUIDS FLOWING. PT CALM/COOPERATIVE. BED IN LOW POSITION. CALL LIGHT WITHIN REACH. SON AT BEDSIDE. PT HAD BM X1, APPEARS DARK BROWN/GREEN. NO BLOOD NOTED. WILL CONT. TO MONITOR.
[2018-07-06 13:10] VITALS: BP 146/72
--- NOTE | 2018-07-06 13:13 | NUR ---
PT COMPLAINT OF CONTINUOUS ACHING PAIN TO RIGHT BUTTOCK. RATES 7/10. WORSE WITH AMBULATION/PALPATION. PT SELF REPOSITIONS. PAIN CONTINUOUS DESPITE REPOSITIONING/RELAXATION. PAIN MEDICATION GIVEN. VS STABLE. NO SOB ON ROOM AIR. CALM/COOPERATIVE. IV WNL TO RFA, NO REDNESS, NO SWELLING, NO INFILTRATION. PATENT. DRESSING TO RIGHT BUTTOCK CDI. BED IN LOW POSITION. CALL LIGHT WITHIN REACH. WILL CONT. TO MONITOR.
--- NOTE | 2018-07-06 13:38 | NUR ---
PT BEING DISCHARGED TO [facility], PATIENT/FAMILY AWARE AND AGREE TO DISCHARGE PLAN, REPORT GIVEN TO GEM HUIZAR. GOING TO ROOM 208B FOLLOWED BY DR. WILLIAMSON. REPORTS GIVEN TO [phone]. PT TO BE TAKEN BY [facility] BY [facility] SCHEDULED FOR [phone] PICKUP TIME. WILL CONTINUE TO MONITOR.
--- NOTE | 2018-07-06 14:57 | NUR ---
PT BEING DISCHARGED TO [facility]. [facility]. DISCHARGE EDUCATION PROVIDED TO PATIENT. PT VERBALIZED UNDERSTANDING. IV WNL TO RFA, NO REDNESS, NO SWELLING, NO INFILTRATION. PATENT SALINE LOCKED. NO COMPLAINT OF PAIN. NO SOB ON ROOM AIR. VS STABLE. NO CHEST PAIN. DRESSING TO RIGHT BUTTOCK CHANGED PER PHYSICIAN ORDER: WET 4X4 APPLIED, COVERED WITH DRY GAUZE. SEE CHART FOR DISCHARGE PICTURE. MEASURES 4.5CM L X 4.0CM W X 1CM D WITH UNDERMINING. SCANT SEROSANGUINUOUS DRAINAGE. NO S/S OF ACUTE DISTRESS. BELONGINGS WITH PATIENT.
== END 2018-07-06 15:09 | DRG 571 ==
LOC: ED 13:14 → MU 16:32
PROVIDERS: Emergency Medicine; Internal Medicine Pulmonary Disease; Surgery; ADMIT Internal Medicine
PROC: 0JB90ZZ Excision of Buttock Subcutaneous Tissue and Fascia, Open Approach (ICD-10-PCS; principal; 2018-07-04 12:30)
DX: L03.317 Cellulitis of buttock (principal); N39.0 Urinary tract infection, site not specified; Z68.42 Body mass index [BMI] 45.0-49.9, adult; L02.31 Cutaneous abscess of buttock; B95.61 Methicillin susceptible Staphylococcus aureus infection as the cause of diseases classified elsewhere; E11.9 Type 2 diabetes mellitus without complications; I10 Essential (primary) hypertension; E66.01 Morbid (severe) obesity due to excess calories
CPT/HCPCS: 90715; J0696; J1170; J1650; J1956; J2270; J2405; J2704; J3010; J3370; J3490; J7030